=== PATIENT | female | born 1955 | race Caucasian/White ===

== ENCOUNTER 2025-06-18 10:11 | Day surgery (SDC) | payer MEDICARE, BC ==
[2025-06-18] MEDS ORDERED: Propofol 500 MG/50 ML SDV ONE (13:30)
== END 2025-06-18 14:40 | disposition home or self-care (01) ==
LOC: LB.SDS 10:11
PROVIDERS: ATTEND Surgery
DX: Z12.11 Encounter for screening for malignant neoplasm of colon (principal); K29.70 Gastritis, unspecified, without bleeding; R05.3 Chronic cough; K64.4 Residual hemorrhoidal skin tags; K21.9 Gastro-esophageal reflux disease without esophagitis; Z80.0 Family history of malignant neoplasm of digestive organs; Z88.8 Allergy status to other drugs, medicaments and biological substances; Z88.0 Allergy status to penicillin; Z88.2 Allergy status to sulfonamides; Z98.84 Bariatric surgery status; Z86.0100 Personal history of colon polyps, unspecified; Z79.899 Other long term (current) drug therapy
CPT/HCPCS: 43239; 88305; 88342; G0121; J2704; J7030; G0105